=== PATIENT | female | born 1935 | race American Indian/Alaskan Native ===

== ENCOUNTER 2016-05-29 09:53 | Outpatient (CLI) | payer MEDICARE ==
[2016-05-29] MEDS ORDERED: NACL ONE (11:15)
--- NOTE | 2016-05-29 14:07 | Cat Scan Report ---
CT CHEST, ABDOMEN AND PELVIS WITH CONTRAST: 05/29/16 12:00:00 CLINICAL: History of right breast cancer COMPARISON: 02/19/16 TECHNIQUE: Volumetric acquisition and 1.25 millimeter scan reconstructions after the uneventful intravenous injection of 100 cc of Omnipaque 300. Consent was obtained prior to the administration of the contrast. Oral contrast was also given. FINDINGS: Chest: No pulmonary nodule or mass. The lungs are underexpanded. Bilateral lower lobe subsegmental atelectasis. Stable cardiomegaly status post CABG. The aorta and pulmonary arteries are unremarkable. Normal esophagus and trachea. No mediastinal or hilar lymphadenopathy.No axillary or supraclavicular lymphadenopathy. Status post right partial mastectomy and radiation therapy. Stable skin thickening of the right breast. A large central seroma of the right breast measures 8.3 x 6.9 x 7.1 cm compared to 12.5 x 10.4 x 9.1 cm. Abdomen: The liver is borderline enlarged with normal overall density. Focal fat the intersegmental fissure in the medial segment of the left lobe measures 1.6 cm. Mild dilatation of the intrahepatic bile ducts and moderate dilatation of the CBD status post cholecystectomy. The common hepatic duct measures 1.7 cm. The CBD tapers to the ampulla. The pancreas is small and fatty replaced. Normal stomach, duodenum and spleen. Normal adrenal glands. The right kidney measures 9.4 cm in length and the left kidney measures 10.3 cm in length. Moderate bilateral renal cortical irregularity. The renal collection systems and ureters are nondilated. No renal mass, calculus or cyst. No lymphadenopathy.No ascites.Calcification and tortuosity of the abdominal aorta. The inferior vena cava is normal. Normal small bowel. Normal anastomosis of the ascending colon. The ascending and transverse colon are normal. Mild diverticulosis of the descending and sigmoid colon. No signs of diverticulitis. An appendix is not identified. Pelvis: Normal urinary bladder. Absence of uterus a normal vaginal cuff. A pessary is identified in the vagina. Normal rectum and sigmoid colon. Bone windows demonstrate degenerative disc disease at multiple levels in the lumbar spine but no suspicious bone lesion. IMPRESSION:1. No evidence of disease recurrence or metastasis. 2. Status post right partial mastectomy with benign post radiation changes. An 8.3 cm benign seroma of the right breast has decreased in size since last exam. 3. Status post cholecystectomy. 4. Bilateral renal cortical scarring. 5. Normal right colon anastomosis. 6. Status post hysterectomy.
--- NOTE | 2016-05-29 14:11 | Cat Scan Report ---
CT ABDOMEN PELVIS WITH CONTRAST History: Right breast cancer Technique: Helical CT before and after IV contrast. Sagittal and coronal reformatted images. Comparison: 02/19/16. Findings: The liver is normal size and homogeneous. No focal liver mass is appreciated. The gallbladder has been surgically removed. Mild postcholecystectomy dilatation is unchanged. There is fatty atrophy throughout pancreas. The spleen is normal size and attenuation. The kidneys are within normal limits. The adrenal glands are normal size and symmetric. The bowel loops are normal caliber and wall thickness. Surgical suture line in the proximal colon is noted, correlate with history. There is no evidence for obstruction or focal inflammation. Hysterectomy and appendectomy changes are suspected. The bladder and distal ureters are unremarkable. No evidence for ascites, adenopathy or inflammatory changes. Moderate lumbar spondylosis is noted. No fracture or suspicious bony lesion is identified. Impression: No evidence for metastatic disease to the abdomen or pelvis Surgical changes as described above. No acute change since 02/19/16.
--- NOTE | 2016-05-29 17:01 | XRay Report ---
Left hip: Routine views demonstrate a relative preservation of the joint space and articular margins. There may be a minimal superior acetabular spur. A small dystrophic appearing calcification projects just below the femoral head. The bones are well-mineralized. There are degenerative lower lumbar spine changes from L4-S1. These findings are unchanged compared to prior study of June 12, 2015. Impression: 1. Small acetabular spur. 2. Degenerative lower lumbar spine changes.
[2016-05-30 22:12] LABS: Blood Urea Nitrogen 23 mg/dL (7-17)
== END 2016-05-29 09:54 | disposition home or self-care (01) ==
LOC: CT 09:53
PROVIDERS: ATTEND Internal Medicine Hematology & Oncology
DX: C50.411 Malignant neoplasm of upper-outer quadrant of right female breast (principal); M70.61 Trochanteric bursitis, right hip; M47.27 Other spondylosis with radiculopathy, lumbosacral region; M47.896 Other spondylosis, lumbar region; K86.89 Other specified diseases of pancreas; J98.11 Atelectasis; I51.7 Cardiomegaly; N64.89 Other specified disorders of breast; I70.0 Atherosclerosis of aorta; K57.30 Diverticulosis of large intestine without perforation or abscess without bleeding; M51.36 Other intervertebral disc degeneration, lumbar region; M25.512 Pain in left shoulder; M54.2 Cervicalgia; M25.511 Pain in right shoulder; Z97.5 Presence of (intrauterine) contraceptive device; Z90.49 Acquired absence of other specified parts of digestive tract; Z85.3 Personal history of malignant neoplasm of breast; Z90.710 Acquired absence of both cervix and uterus; Z95.1 Presence of aortocoronary bypass graft; Z90.11 Acquired absence of right breast and nipple
CPT/HCPCS: 71260; 73502; 74177; Q9967; 36415; 82565; 84520

== ENCOUNTER 2017-07-18 16:54 | Outpatient (CLI) | payer MEDICARE ==
--- NOTE | 2017-07-19 09:41 | Magnetic Resonance Report ---
MRI BRAIN WITHOUT CONTRAST: 07/18/17 16:54:00 CLINICAL: Headache. TECHNIQUE: Axial diffusion, T1, T2, FLAIR, gradient echo T2*, and sagittal T1 sequences on a 1.5 Shanta magnet. FINDINGS: The ventricles and sulci are normal for age. No restricted diffusion. No mass or mass effect. Mild bilateral periventricular and subcortical white matter hyperintensities on FLAIR and T2. No hemorrhage, edema or extra-axial collection. Normal pituitary and optic chiasm. The brainstem and cerebellum are normal. Intact vascular flow voids. Normal sinuses. The orbits, and soft tissues are normal. Normal calvarium and skull base. IMPRESSION: Normal study.
== END 2017-07-18 16:55 | disposition home or self-care (01) ==
LOC: MRI 16:54
PROVIDERS: ATTEND Internal Medicine Cardiovascular Disease
DX: I67.9 Cerebrovascular disease, unspecified (principal)
CPT/HCPCS: 70551

== ENCOUNTER → 2017-12-10 | Outpatient (CLI) | payer MEDICARE ==
--- NOTE | 2017-12-10 16:16 | Cat Scan Report ---
FINAL REPORT EXAM: CT CHEST WO CON HISTORY: Cough Personal history of malignant neoplasm of breast TECHNIQUE: Standard unenhanced CT of the chest at 2.5 mm axial increments. Coronal and sagittal reconstruction was also obtained. PRIORS: None. FINDINGS: In the right breast posteriorly, there is a 5.8 x 3.8 x 5.7 cm thick walled fluid collection with a stellate margin and surrounding surgical clips. Findings are probably postsurgical in nature, likely a seroma. No internal air fluid level is seen to suggest abscess. There is a small bulla in the central right upper lobe. Minimal linear atelectasis in each lung base is present. Otherwise, the lung parenchyma are expanded and clear with no evidence for parenchymal nodules, infiltrates, vascular congestion, pleural effusion, or pneumothorax. There is no evidence for mediastinal, hilar, or axillary adenopathy. The esophagus is collapsed. The trachea is midline. Cardiovascular structures are within normal limits. Cardiac size and aorta are normal. Median sternotomy wires are noted. Images through the lung bases include upper abdomen which show fatty infiltration of the pancreas. Bony structures show no focal abnormalities. No evidence for bony fracture is seen. IMPRESSION: 1. no acute abnormality identified in the chest. A small bulla in the right upper lobe is consistent with minimal emphysema. 2. Probable postsurgical seroma in the central right breast surrounded by surgical clips.
== END | disposition home or self-care (01) ==
LOC: CT 10:20
PROVIDERS: ATTEND Specialist
DX: J43.9 Emphysema, unspecified (principal); I10 Essential (primary) hypertension; E11.65 Type 2 diabetes mellitus with hyperglycemia; E78.5 Hyperlipidemia, unspecified; M10.9 Gout, unspecified; E78.00 Pure hypercholesterolemia, unspecified; K21.9 Gastro-esophageal reflux disease without esophagitis; E66.9 Obesity, unspecified; G62.9 Polyneuropathy, unspecified; I25.10 Atherosclerotic heart disease of native coronary artery without angina pectoris; Z90.710 Acquired absence of both cervix and uterus; Z87.891 Personal history of nicotine dependence; Z90.49 Acquired absence of other specified parts of digestive tract; Z86.73 Personal history of transient ischemic attack (TIA), and cerebral infarction without residual deficits
CPT/HCPCS: 71250